=== PATIENT | female | born 1935 | race Caucasian/White ===

== ENCOUNTER 2019-12-21 05:53 | Inpatient (IN) | payer MEDICARE, BC ==
[2019-12-21] VITALS (8 sets, daily range): BP systolic 69–134; BP diastolic 45–83
[~2019-12-21] VITALS: Ht 165.1 cm; Wt 70.0 kg
[~2019-12-21 05:53] MED LIST: ONDA8TAB13 PO
[2019-12-21] MEDS ORDERED: ondansetron/PF 4mg/2ml inj IV ONE (06:00)
[2019-12-21] MEDS: morphine 4 MG/ML inj SYRINge IV PRN ×3 (06:20→10:48)
--- NOTE | 2019-12-21 06:35 | NUR ---
Assumed care of Patient, patient A&O x4. Patient states pain in tolerable at this time. Patient awaiting xray. No other needs at this time.
--- NOTE | 2019-12-21 06:48 | NUR ---
Xray at bedside.
--- NOTE | 2019-12-21 06:57 | NUR ---
Patient's son, Kwesi, updated about care and left his phone number [phone]
[2019-12-21 07:06] LABS: BASOPHILS % (AUTO) 0.5 % (0-1); EOSINOPHILS # (AUTO) 0.1 X10'3 (0-0.9); EOSINOPHILS % (AUTO) 1.2 % (0-6); HEMATOCRIT 37.4 % (35.0-45.0); HEMOGLOBIN 12.2 g/dl (12.0-16.0); LYMPHOCYTES # (AUTO) 1.6 X10'3 (1.1-4.8); LYMPHOCYTES % (AUTO) 18.5 % (21-51); MEAN CORPUSCULAR HEMOGLOBIN 30.8 PG (27.0-31.0); MEAN CORPUSCULAR HGB CONC 32.7 g/dL (33.0-36.5); MEAN CORPUSCULAR VOLUME 94.2 FL (78-98); MEAN PLATELET VOLUME 8.2 FL (7.4-10.4); MONOCYTES # (AUTO) 0.7 X10'3 (0-0.9); MONOCYTES % (AUTO) 8.4 % (2-12); NEUTROPHILS # (AUTO) 6.2 X10'3 (1.8-7.7); NEUTROPHILS % (AUTO) 71.4 % (42-75); PLATELET COUNT 211 X10'3 (140-440); RED BLOOD COUNT 3.97 X10'6 (4.20-5.60); RED CELL DISTRIBUTION WIDTH 14.8 % (11.5-14.5); WHITE BLOOD COUNT 8.6 X10'3 (4.5-11.0)
[2019-12-21 07:17] LABS: PARTIAL THROMBOPLASTIN TIME 42 SECONDS (22-32)
[2019-12-21 07:20] LABS: ALANINE AMINOTRANSFERASE 24 U/L (12-78); ALBUMIN 3.2 G/DL (3.4-5.0); ALBUMIN/GLOBULIN RATIO 0.9 (1.1-1.5); ALKALINE PHOSPHATASE 62 IU/L (46-116); ANION GAP 8 (8-16); ASPARTATE AMINO TRANSFERASE 19 U/L (10-37); BILIRUBIN,TOTAL 0.4 MG/DL (0.1-1.0); BLOOD UREA NITROGEN 13 MG/DL (7-18); BUN/CREATININE RATIO 14.8 (6.6-38.0); CALCIUM 8.5 MG/DL (8.5-10.1); CHLORIDE 105 MMOL/L (99-107); CREATININE 0.88 MG/DL (0.40-0.90); GLUCOSE 102 MG/DL (70-104); POTASSIUM 4.2 MMOL/L (3.5-5.1); SODIUM 141 MMOL/L (135-145); TOTAL CARBON DIOXIDE 27.9 MMOL/L (24-32); TOTAL PROTEIN 6.8 G/DL (6.4-8.2); eGFR 61 ML/MIN
[2019-12-21] MEDS ORDERED: FURO-150 PO (07:36)
[2019-12-21] MEDS ORDERED: POTA10CA44 PO (07:37)
[2019-12-21] MEDS ORDERED: WARF1TAB2 PO (07:39)
[2019-12-21] MEDS ORDERED: WARF5TAB2 PO (07:39)
[2019-12-21] MEDS ORDERED: mag hydrox/Alum hydrox/simeth 30ml oral suspension PO PRN (07:40)
[2019-12-21] MEDS ORDERED: phytonadione inj. 5 MG in normal saline 100ml IV soln 99.5 ML IV ONE (07:40)
[2019-12-21] MEDS ORDERED: magnesium hydroxide 30ml (MOM) UD suspension PO PRN (07:40)
[2019-12-21] MEDS ORDERED: acetaminophen 325mg tablet PO PRN (07:40)
[2019-12-21] MEDS ORDERED: ondansetron/PF 4mg/2ml inj IV PRN (07:40)
[2019-12-21] MEDS ORDERED: SIMV-42 PO (07:44)
[2019-12-21] MEDS ORDERED: METO1TAB25 PO (07:44)
[2019-12-21] MEDS ORDERED: PIL2OS RIGHTEYE (07:44)
[2019-12-21] MEDS ORDERED: PIL2OS EACHEYE (07:44)
[2019-12-21] MEDS ORDERED: GABA600T13 PO (07:44)
[2019-12-21] MEDS ORDERED: RIVA1PAT9 TOP (07:47)
[2019-12-21] MEDS ORDERED: LEVO100T9 PO (07:47)
[2019-12-21] MEDS: normal saline 1000ml 1,000 ML IV SCH ×2 (08:20→18:11)
[2019-12-21 08:48] LABS: CLARITY,URINE CLEAR (Clear); COLOR,URINE YELLOW (Yellow); GLUCOSE, URINE NEGATIVE (Neg); KETONES,URINE NEGATIVE (Neg); LEUKOCYTE ESTERASE ,URINE NEGATIVE (Neg); NITRITES, URINE NEGATIVE (Neg); OCCULT BLOOD,URINE SMALL (Neg); PROTEIN,URINE NEGATIVE (Neg); UA COLLECTION TYPE FOLEY CATH; UROBILINOGEN,URINE 0.2 E.U/dL (0.2-1.0)
[2019-12-21 08:55] LABS: BACTERIA,URINE 1+ /HPF (Neg); MUCUS STRANDS MANY /LPF (Neg); SQUAMOUS EPITHELIAL CELL,UR FEW /LPF (FEW); WBC,URINE 0-4 /HPF (0-4)
[2019-12-21] MEDS ORDERED: RIVA1.5C16 PO (09:28)
[2019-12-21] MEDS ORDERED: METO-384 PO (09:28)
--- NOTE | 2019-12-21 10:04 | NUR ---
Patient's son updated on patient's care/plan. Patient talking to son on phone.
--- NOTE | 2019-12-21 10:54 | NUR ---
Repositioned patient and supported knee/legs with pillow per patient request. Patient given additional pain medication. Call light within reach. No other needs at this time.
[2019-12-21] MEDS: HYDROmorphone inj. 0.5 MG/0.5 ML DISP.SYRIN IV PRN ×2 (14:10→19:22)
[2019-12-21 14:23] LABS: PARTIAL THROMBOPLASTIN TIME 33 SECONDS (22-32)
[2019-12-21] MEDS ORDERED: metoprolol succinate 25mg (24-HOUR) SR. Tablet PO STA (14:23)
[2019-12-21] MEDS: levoTHYROXINE 100mcg tablet PO SCH (15:09)
[2019-12-21] MEDS: furosemide 20MG tablet PO SCH (15:09)
[2019-12-21] MEDS: gabapentin 300mg capsule PO SCH (15:09)
[2019-12-21] MEDS: potassium Cl 20 mEq SR tablet PO SCH (15:09)
[2019-12-21] MEDS ORDERED: phytonadione inj. 3 MG in normal saline 100ml IV soln 99.7 ML IV ONE (17:20)
--- NOTE | 2019-12-21 18:30 | NUR ---
son called to notify that pt WILL accept cryoprecipitate.
--- NOTE | 2019-12-21 19:11 | NUR ---
called Dr. Marsh anestesiologist about INR and vit K doses. stated no bridge heparin needed, recheck INR in am would be appropriate.
[2019-12-21] MEDS: pilocarpine 2% ophthalmic drops 15ml EACHEYE SCH (20:00)
[2019-12-21] MEDS: atorvastatin 10mg tablet PO SCH (21:00)
[2019-12-21] MEDS ORDERED: ringers solution, lacted 1,000 ML IV ONE (22:10)
--- NOTE | 2019-12-21 23:00 | NUR ---
gave fluid bolus 250ml normal saline for decreased BP. pt tolerated well.
[2019-12-22] VITALS (20 sets, daily range): BP systolic 90–150; BP diastolic 51–88
[2019-12-22] MEDS: pilocarpine 2% ophthalmic drops 15ml EACHEYE SCH ×4 (02:37→20:28)
[2019-12-22] MEDS: normal saline 1000ml 1,000 ML IV SCH ×3 (02:37→23:07)
[2019-12-22] MEDS: morphine 2 MG/ML inj. syringe IV PRN ×4 (04:03→23:01)
[2019-12-22] MEDS ORDERED: famotidine 20mg tablet PO ONE (06:00)
--- NOTE | 2019-12-22 06:30 | NUR ---
Patient in room ORTHO 4021. I have received report from Santa KOHLER and had the opportunity to ask questions and assume patient care.
[2019-12-22 06:41] LABS: BASOPHILS % (AUTO) 0.2 % (0-1); EOSINOPHILS % (AUTO) 0 % (0-6); HEMATOCRIT 30.5 % (35.0-45.0); HEMOGLOBIN 9.8 g/dl (12.0-16.0); LYMPHOCYTES % (AUTO) 8.1 % (21-51); MEAN CORPUSCULAR HEMOGLOBIN 30.6 PG (27.0-31.0); MEAN CORPUSCULAR HGB CONC 32.3 g/dL (33.0-36.5); MEAN CORPUSCULAR VOLUME 94.6 FL (78-98); MEAN PLATELET VOLUME 8.4 FL (7.4-10.4); MONOCYTES # (AUTO) 1.3 X10'3 (0-0.9); MONOCYTES % (AUTO) 10.8 % (2-12); NEUTROPHILS # (AUTO) 9.7 X10'3 (1.8-7.7); NEUTROPHILS % (AUTO) 80.9 % (42-75); PLATELET COUNT 180 X10'3 (140-440); RED BLOOD COUNT 3.22 X10'6 (4.20-5.60); RED CELL DISTRIBUTION WIDTH 14.8 % (11.5-14.5)
[2019-12-22 06:50] LABS: ALBUMIN 2.7 G/DL (3.4-5.0); ANION GAP 5 (8-16); BLOOD UREA NITROGEN 21 MG/DL (7-18); BUN/CREATININE RATIO 16.9 (6.6-38.0); CALCIUM 7.8 MG/DL (8.5-10.1); CHLORIDE 108 MMOL/L (99-107); CREATININE 1.24 MG/DL (0.40-0.90); GLUCOSE 104 MG/DL (70-104); POTASSIUM 4.5 MMOL/L (3.5-5.1); SODIUM 140 MMOL/L (135-145); TOTAL CARBON DIOXIDE 26.7 MMOL/L (24-32); eGFR 41 ML/MIN
--- NOTE | 2019-12-22 07:00 | NUR ---
Patient report given to Nai in recovery. Okayed with anesthesia to give beta/shahab, EKG done this morning pre-op. Dr. Marsh came to see the patient pre-op.
[2019-12-22] MEDS: metoprolol succinate 25mg (24-HOUR) SR. Tablet PO SCH (07:04)
[2019-12-22] MEDS ORDERED: metoprolol succinate 25mg (24-HOUR) SR. Tablet PO ONE (07:05)
[2019-12-22] MEDS ORDERED: fentaNYL/PF 50MCG/1 ML 2ML syringe ONE (07:34)
[2019-12-22] MEDS ORDERED: midazolam 2 mg/2 ml injection ONE (07:36)
[2019-12-22] MEDS: gabapentin 300mg capsule PO SCH (08:00)
[2019-12-22] MEDS: potassium Cl 20 mEq SR tablet PO SCH (08:00)
[2019-12-22] MEDS: furosemide 20MG tablet PO SCH (08:00)
[2019-12-22] MEDS: levoTHYROXINE 100mcg tablet PO SCH (08:00)
[2019-12-22] MEDS ORDERED: phenylephrine 10mg/ml inj. ONE (08:17)
[2019-12-22] MEDS ORDERED: ceFAZolin 1000mg inj ONE ×2 (08:17)
[2019-12-22] MEDS ORDERED: 0.9 % SODIUM CHLORIDE 10 ML VIAL ONE (08:17)
[2019-12-22] MEDS ORDERED: ePHEDrine 50MG/ML INJ. ONE (08:17)
[2019-12-22] MEDS ORDERED: ringers solution, lacted 1,000 ML IV SCH (09:39)
--- NOTE | 2019-12-22 09:39 | NUR ---
PATIENT ARRIVED TO RECOVERY VIA BED WITH PATIENT A&OX4, DENIES PAIN, V/S WNL, NEUROVASCULAR CHECKS INTACT, 20G PIV RIGHT HAND, DRESSING TO RIGHT KNEE CDI W/ COLD POWDER PACK AND IMMOBILIZER BRACE W/ SCD ON. F/C DRAINING CLEAR YELLOW URINE. SENSATION down to ankles.
[2019-12-22] MEDS ORDERED: morphine 2 MG/ML inj. syringe IV PRN (09:40)
[2019-12-22] MEDS ORDERED: meperidine/PF 25mg/ml syringe IV PRN ×2 (09:40)
[2019-12-22] MEDS ORDERED: ondansetron/PF 4mg/2ml inj IV PRN (09:40)
[2019-12-22] MEDS ORDERED: acetaminophen 1,000mg/100ml IV 100 ML IV PRN (09:40)
[2019-12-22] MEDS ORDERED: proCHLORperazine 10 MG/2 ml inj IV PRN (09:40)
--- NOTE | 2019-12-22 10:20 | NUR ---
Called Tele monitor room to ask about patient's baseline HR with AFIB prior to surgery. He confirmed HR was anywhere between 110s and 140s. Pt in Afib and rate of 120s-130s now so at baseline. This was also confirmed and reviewed with Shasha KOHLER during report to ortho floor.
--- NOTE | 2019-12-22 10:49 | NUR ---
PATIENT A&OX4, DENIES PAIN, V/S WNL, NEUROVASCULAR CHECKS INTACT, DRESSING TO RIGHT HIP CDI, SCD ON. F/C DRAINING CLEAR YELLOW URINE. PATIENT TAKEN TO WITH ALL BELONGINGS AND HOOKED UP TO MONITORS IN ROOM AND REPORT GIVEN TO WIND TURBINE TECHNICIAN WHO HAS TAKEN OVER PATIENT CARE. BED LOW, CALL LIGHT PRESENT AND VSS. Tele 21 placed back on patient and tele monitor called to inform.
--- NOTE | 2019-12-22 18:11 | NUR ---
Problems reprioritized. Patient report given, questions answered & plan of care reviewed with Debbie KOHLER.
[2019-12-22] MEDS: warfarin 5mg tablet PO SCH (20:27)
[2019-12-22] MEDS: atorvastatin 10mg tablet PO SCH (20:27)
[2019-12-23] VITALS (7 sets, daily range): BP systolic 116–154; BP diastolic 62–78
[2019-12-23] MEDS ORDERED: ziprasidone IM 20mg inj **IM only IM PRN (02:15)
[2019-12-23] MEDS: pilocarpine 2% ophthalmic drops 15ml EACHEYE SCH ×4 (02:37→19:11)
[2019-12-23] MEDS: morphine 2 MG/ML inj. syringe IV PRN (03:24)
--- NOTE | 2019-12-23 04:20 | NUR ---
Spoke with MD Mcdermott received orders to give Metoprolol now r/t HR 120's -140's.
[2019-12-23] MEDS: metoprolol succinate 25mg (24-HOUR) SR. Tablet PO SCH ×2 (04:22→19:11)
--- NOTE | 2019-12-23 06:00 | NUR ---
Patient in room ORTHO 4021. I have received report from Debbie Avelar and had the opportunity to ask questions and assume patient care.
--- NOTE | 2019-12-23 06:09 | NUR ---
Report given to Rossy KOHLER.
[2019-12-23 06:46] LABS: BASOPHILS % (AUTO) 0.2 % (0-1); EOSINOPHILS % (AUTO) 0 % (0-6); HEMATOCRIT 25.7 % (35.0-45.0); HEMOGLOBIN 8.4 g/dl (12.0-16.0); LYMPHOCYTES # (AUTO) 1.1 X10'3 (1.1-4.8); LYMPHOCYTES % (AUTO) 8.5 % (21-51); MEAN CORPUSCULAR HGB CONC 32.9 g/dL (33.0-36.5); MEAN CORPUSCULAR VOLUME 94.3 FL (78-98); MEAN PLATELET VOLUME 8.5 FL (7.4-10.4); MONOCYTES # (AUTO) 1.9 X10'3 (0-0.9); MONOCYTES % (AUTO) 14.1 % (2-12); NEUTROPHILS # (AUTO) 10.2 X10'3 (1.8-7.7); NEUTROPHILS % (AUTO) 77.2 % (42-75); PLATELET COUNT 145 X10'3 (140-440); RED BLOOD COUNT 2.72 X10'6 (4.20-5.60); RED CELL DISTRIBUTION WIDTH 14.5 % (11.5-14.5); WHITE BLOOD COUNT 13.2 X10'3 (4.5-11.0)
[2019-12-23 07:02] LABS: ALBUMIN 2.4 G/DL (3.4-5.0); ANION GAP 4 (8-16); BLOOD UREA NITROGEN 21 MG/DL (7-18); BUN/CREATININE RATIO 27.6 (6.6-38.0); CHLORIDE 105 MMOL/L (99-107); CREATININE 0.76 MG/DL (0.40-0.90); GLUCOSE 126 MG/DL (70-104); POTASSIUM 3.9 MMOL/L (3.5-5.1); SODIUM 137 MMOL/L (135-145); TOTAL CARBON DIOXIDE 28.2 MMOL/L (24-32); eGFR 73 ML/MIN
[2019-12-23] MEDS: normal saline 1000ml 1,000 ML IV SCH ×2 (09:35→20:15)
[2019-12-23] MEDS: potassium Cl 20 mEq SR tablet PO SCH (09:37)
[2019-12-23] MEDS: levoTHYROXINE 100mcg tablet PO SCH (09:45)
[2019-12-23] MEDS: furosemide 20MG tablet PO SCH (09:45)
[2019-12-23] MEDS: gabapentin 300mg capsule PO SCH (09:45)
--- NOTE | 2019-12-23 18:05 | NUR ---
PAGER ID: [phone] MESSAGE: Rossy Garcia on ortho, Ms. Solomon in [address], has been having high HR of 140s -170s in the last 20 minutes, please advise, thank you
--- NOTE | 2019-12-23 18:20 | NUR ---
Problems reprioritized. Patient report given, questions answered & plan of care reviewed with
[2019-12-23] MEDS: diltiazem CD 120mg capsule (once-daily) PO SCH (19:10)
--- NOTE | 2019-12-23 19:18 | NUR ---
ASSUMED CARE OF PATIENT WITH VERBAL REPORT FROM HEIDI KOHLER. DR. MCKEON ORDERED CARDIZEM AND METOPROLOL AT CHANGE OF SHIFT TO BE GIVEN FOR SUSTAINED HR OF 130-145. MEDS GIVEN. B/P WAS 133/78, AND HR WAS 144. WILL MONITOR HR FREQUENTLY.
[2019-12-23] MEDS: atorvastatin 10mg tablet PO SCH (21:11)
[2019-12-23] MEDS: warfarin 5mg tablet PO SCH (21:12)
[2019-12-24] MEDS: pilocarpine 2% ophthalmic drops 15ml EACHEYE SCH ×4 (02:25→21:23)
[2019-12-24] MEDS: normal saline 1000ml 1,000 ML IV SCH ×3 (05:59→22:34)
[2019-12-24 06:00] VITALS: BP 122/65
[2019-12-24] MEDS: morphine 2 MG/ML inj. syringe IV PRN ×2 (06:32→22:50)
--- NOTE | 2019-12-24 06:37 | NUR ---
Problems reprioritized. Patient report given, questions answered & plan of care reviewed with Betina KOHLER.
--- NOTE | 2019-12-24 06:39 | NUR ---
Patient in room ORTHO 4021. I have received report from BLAISE KOHLER and had the opportunity to ask questions and assume patient care.
[2019-12-24 07:07] LABS: BASOPHILS % (AUTO) 0.1 % (0-1); EOSINOPHILS % (AUTO) 0.1 % (0-6); HEMATOCRIT 24.9 % (35.0-45.0); HEMOGLOBIN 8.2 g/dl (12.0-16.0); LYMPHOCYTES # (AUTO) 0.9 X10'3 (1.1-4.8); LYMPHOCYTES % (AUTO) 6.7 % (21-51); MEAN CORPUSCULAR HEMOGLOBIN 31.3 PG (27.0-31.0); MEAN CORPUSCULAR HGB CONC 33.1 g/dL (33.0-36.5); MEAN CORPUSCULAR VOLUME 94.4 FL (78-98); MEAN PLATELET VOLUME 8.5 FL (7.4-10.4); MONOCYTES # (AUTO) 1.5 X10'3 (0-0.9); MONOCYTES % (AUTO) 11.3 % (2-12); NEUTROPHILS # (AUTO) 11.1 X10'3 (1.8-7.7); NEUTROPHILS % (AUTO) 81.8 % (42-75); PLATELET COUNT 147 X10'3 (140-440); RED BLOOD COUNT 2.63 X10'6 (4.20-5.60); RED CELL DISTRIBUTION WIDTH 14.5 % (11.5-14.5); WHITE BLOOD COUNT 13.6 X10'3 (4.5-11.0)
[2019-12-24 07:16] LABS: ALBUMIN 2.2 G/DL (3.4-5.0); ANION GAP 4 (8-16); BLOOD UREA NITROGEN 18 MG/DL (7-18); BUN/CREATININE RATIO 26.1 (6.6-38.0); CALCIUM 7.8 MG/DL (8.5-10.1); CHLORIDE 104 MMOL/L (99-107); CREATININE 0.69 MG/DL (0.40-0.90); GLUCOSE 104 MG/DL (70-104); POTASSIUM 3.8 MMOL/L (3.5-5.1); SODIUM 136 MMOL/L (135-145); TOTAL CARBON DIOXIDE 28.2 MMOL/L (24-32); eGFR 81 ML/MIN
[2019-12-24] MEDS: diltiazem CD 120mg capsule (once-daily) PO SCH (08:15)
[2019-12-24] MEDS: furosemide 20MG tablet PO SCH (08:16)
[2019-12-24] MEDS: potassium Cl 20 mEq SR tablet PO SCH (08:17)
[2019-12-24] MEDS: gabapentin 300mg capsule PO SCH (08:18)
[2019-12-24] MEDS: levoTHYROXINE 100mcg tablet PO SCH (08:18)
[2019-12-24] MEDS: metoprolol succinate 25mg (24-HOUR) SR. Tablet PO SCH (08:19)
[2019-12-24 11:25] VITALS: BP 112/72
[2019-12-24 18:00] VITALS: BP 128/80
--- NOTE | 2019-12-24 18:26 | NUR ---
Problems reprioritized. Patient report given, questions answered & plan of care reviewed with ASHER KOHLER.
--- NOTE | 2019-12-24 21:17 | NUR ---
Spoke to patient's son, Theo. Wanting his mom to go to [facility], but has requested to be contacted by DCP for any dischg plans or decisions. Will pass this on to early shift RN caring for her and also will communicate this to the morning charge preparation technician
[2019-12-24] MEDS: warfarin 5mg tablet PO SCH (21:22)
[2019-12-24] MEDS: atorvastatin 10mg tablet PO SCH (21:22)
[2019-12-24 22:00] VITALS: BP 126/82
[2019-12-25] MEDS: pilocarpine 2% ophthalmic drops 15ml EACHEYE SCH ×2 (02:00→07:20)
[2019-12-25 05:48] LABS: BASOPHILS % (AUTO) 0.1 % (0-1); EOSINOPHILS # (AUTO) 0.1 X10'3 (0-0.9); EOSINOPHILS % (AUTO) 0.7 % (0-6); HEMATOCRIT 22.5 % (35.0-45.0); HEMOGLOBIN 7.4 g/dl (12.0-16.0); LYMPHOCYTES # (AUTO) 1.2 X10'3 (1.1-4.8); LYMPHOCYTES % (AUTO) 10.2 % (21-51); MEAN CORPUSCULAR HEMOGLOBIN 30.6 PG (27.0-31.0); MEAN CORPUSCULAR HGB CONC 32.9 g/dL (33.0-36.5); MEAN CORPUSCULAR VOLUME 93.1 FL (78-98); MEAN PLATELET VOLUME 7.9 FL (7.4-10.4); MONOCYTES # (AUTO) 1.4 X10'3 (0-0.9); MONOCYTES % (AUTO) 12.2 % (2-12); NEUTROPHILS # (AUTO) 8.7 X10'3 (1.8-7.7); NEUTROPHILS % (AUTO) 76.8 % (42-75); PLATELET COUNT 165 X10'3 (140-440); RED BLOOD COUNT 2.42 X10'6 (4.20-5.60); RED CELL DISTRIBUTION WIDTH 14.5 % (11.5-14.5); WHITE BLOOD COUNT 11.3 X10'3 (4.5-11.0)
[2019-12-25 05:53] LABS: ANION GAP 4 (8-16); BLOOD UREA NITROGEN 20 MG/DL (7-18); BUN/CREATININE RATIO 30.3 (6.6-38.0); CALCIUM 7.6 MG/DL (8.5-10.1); CHLORIDE 105 MMOL/L (99-107); CREATININE 0.66 MG/DL (0.40-0.90); GLUCOSE 97 MG/DL (70-104); POTASSIUM 3.5 MMOL/L (3.5-5.1); SODIUM 137 MMOL/L (135-145); TOTAL CARBON DIOXIDE 27.7 MMOL/L (24-32); eGFR 86 ML/MIN
[2019-12-25 06:00] VITALS: BP 107/74
--- NOTE | 2019-12-25 06:16 | NUR ---
received report from padilla so
[2019-12-25] MEDS: diltiazem CD 120mg capsule (once-daily) PO SCH (07:21)
[2019-12-25] MEDS: potassium Cl 20 mEq SR tablet PO SCH (07:21)
[2019-12-25] MEDS: gabapentin 300mg capsule PO SCH (07:21)
[2019-12-25] MEDS: metoprolol succinate 25mg (24-HOUR) SR. Tablet PO SCH (07:22)
[2019-12-25] MEDS: levoTHYROXINE 100mcg tablet PO SCH (07:22)
[2019-12-25] MEDS: morphine 2 MG/ML inj. syringe IV PRN (09:37)
[2019-12-25 10:00] VITALS: BP 100/56
--- NOTE | 2019-12-25 13:21 | NUR ---
gave report to deion causey at [facility]
--- NOTE | 2019-12-25 14:05 | NUR ---
pt d/c with all belongings on rob accompanied by [facility] personnel to [facility]
== END 2019-12-25 14:05 | DRG 481 ==
LOC: ER 05:53 → ED HOLD 07:38 → ORTHO 4S 11:48
PROVIDERS: ADMIT Family Medicine; ATTEND Family Medicine
PROC: 0QS606Z Reposition Right Upper Femur with Intramedullary Internal Fixation Device, Open Approach (ICD-10-PCS; principal; 2019-12-22 07:26)
DX: M80.851A Other osteoporosis with current pathological fracture, right femur, initial encounter for fracture (principal); I48.20 Chronic atrial fibrillation, unspecified; D68.59 Other primary thrombophilia; T45.515A Adverse effect of anticoagulants, initial encounter; E03.9 Hypothyroidism, unspecified; E78.00 Pure hypercholesterolemia, unspecified; W01.0XXA Fall on same level from slipping, tripping and stumbling without subsequent striking against object, initial encounter; F32.9 Major depressive disorder, single episode, unspecified; F41.9 Anxiety disorder, unspecified; D72.829 Elevated white blood cell count, unspecified; K21.9 Gastro-esophageal reflux disease without esophagitis; E78.5 Hyperlipidemia, unspecified; I10 Essential (primary) hypertension; Z79.01 Long term (current) use of anticoagulants; Z86.73 Personal history of transient ischemic attack (TIA), and cerebral infarction without residual deficits; Y93.89 Activity, other specified; Y92.098 Other place in other non-institutional residence as the place of occurrence of the external cause; Y99.8 Other external cause status; Z88.5 Allergy status to narcotic agent; Z79.899 Other long term (current) drug therapy
CPT/HCPCS: 36415; 71045; 73502; 76000; 80048; 80053; 81001; 82948; 83605; 84145; 84443; 85025; 85610; 85730; 86885; 86900; 86901; 87040; 87081; 93005; 96374; 97110; 97112; 97116; 97162; 97530; 99285; A4215; A4618; A7000; C1713; G0378; J0690; J1170; J2175; J2250; J2270; J2370; J2405; J3010; J3430; J3486; J7030; J7120

== ENCOUNTER 2022-04-25 17:09 | Inpatient (IN) | payer MEDICARE, BC ==
[~2022-04-25] VITALS: Ht 160 cm; Wt 65.9 kg
[~2022-04-25 17:09] MED LIST changes: +GABA600T13 PO; +LEVO100T9 PO; +METO-384 PO; -ONDA8TAB13 PO; +PIL2OS EACHEYE; +POTA10CA45 PO; +RIVA1.5C30 PO; +SIMV-42 PO; +WARF5TAB2 PO
--- NOTE | 2022-04-25 21:33 | NUR ---
spoke with son and gave him an update. per son pt is a&ox4 at home.
[2022-04-25 22:06] LABS: BASOPHILS % (AUTO) 0.4 % (0-1); EOSINOPHILS % (AUTO) 0.2 % (0-6); HEMOGLOBIN 12.7 g/dl (12.0-16.0); LYMPHOCYTES # (AUTO) 0.9 X10'3 (1.1-4.8); LYMPHOCYTES % (AUTO) 9.1 % (21-51); MEAN CORPUSCULAR HEMOGLOBIN 31.6 PG (27.0-31.0); MEAN CORPUSCULAR HGB CONC 33.5 g/dL (33.0-36.5); MEAN CORPUSCULAR VOLUME 94.4 FL (78-98); MEAN PLATELET VOLUME 8.4 FL (7.4-10.4); MONOCYTES # (AUTO) 1.4 X10'3 (0-0.9); MONOCYTES % (AUTO) 13.7 % (2-12); NEUTROPHILS # (AUTO) 7.5 X10'3 (1.8-7.7); NEUTROPHILS % (AUTO) 76.6 % (42-75); PLATELET COUNT 182 X10'3 (140-440); RED BLOOD COUNT 4.02 X10'6 (4.20-5.60); RED CELL DISTRIBUTION WIDTH 14.6 % (11.5-14.5); WHITE BLOOD COUNT 9.8 X10'3 (4.5-11.0)
[2022-04-25 22:27] LABS: ALANINE AMINOTRANSFERASE 14 U/L (12-78); ALBUMIN 3.4 G/DL (3.4-5.0); ALBUMIN/GLOBULIN RATIO 0.9 (1.1-1.5); ALKALINE PHOSPHATASE 71 IU/L (46-116); ANION GAP 10 (8-16); ASPARTATE AMINO TRANSFERASE 18 U/L (10-37); BILIRUBIN,TOTAL 0.4 MG/DL (0.1-1.0); BLOOD UREA NITROGEN 21 MG/DL (7-18); CALCIUM 8.5 MG/DL (8.5-10.1); CHLORIDE 102 MMOL/L (99-107); GLUCOSE 110 MG/DL (70-104); SODIUM 137 MMOL/L (135-145); eGFR 53 ML/MIN
[2022-04-25] MEDS ORDERED: acetaminophen 325mg tablet PO ONE (22:30)
--- NOTE | 2022-04-25 22:38 | NUR ---
PT IS DISORIENTENT AND REPEATEDLY ASKS TO GO HOME. PT CONTINUES TO REQUEST THAT HER SON BE CALLED, PT WAS INFORMED THAT HER SON WAS GIVEN AN UPDATE WHEN HE CALLED.
--- NOTE | 2022-04-26 00:09 | NUR ---
Reviewed CRISTOFER Gallegos's assessment. Pt was A/O x4 when Rosy assessed her earlier, but when I assessed her, pt told me the wrong year, and couldn't tell me the month. She knows this is an ER, but she couldn't tell me when she is here. Pt could be in and out of confusion.
--- NOTE | 2022-04-26 00:11 | NUR ---
PT CONTINUES TO BE DISORIENTED AND NOT STAYING IN ROOM. PT IS PERSISTANTLY ASKING TO GO HOME.
[2022-04-26] MEDS ORDERED: diltiazem 30mg tablet PO ONE ×2 (01:15→10:30)
[2022-04-26] MEDS ORDERED: diltiazem 5mg/ml 5ml inj. IV ONE (01:20)
[2022-04-26 01:42] LABS: CLARITY,URINE CLEAR (Clear); COLOR,URINE YELLOW (Yellow); GLUCOSE, URINE NEGATIVE (Neg); KETONES,URINE NEGATIVE (Neg); LEUKOCYTE ESTERASE ,URINE NEGATIVE (Neg); NITRITES, URINE NEGATIVE (Neg); OCCULT BLOOD,URINE SMALL (Neg); PH,URINE 7.5 (4.8-8.0); PROTEIN,URINE TRACE mg/dl (Neg); UROBILINOGEN,URINE 0.2 E.U/dL (0.2-1.0)
[2022-04-26 01:48] LABS: UA COLLECTION TYPE OTHER
[2022-04-26 01:49] LABS: BACTERIA,URINE 1+ /HPF (Neg); SQUAMOUS EPITHELIAL CELL,UR FEW /LPF (FEW)
[2022-04-26] MEDS ORDERED: magnesium 4gm in 100ml NS 100 ML IV PRN (02:30)
[2022-04-26] MEDS ORDERED: potassium Cl 40MEQ/1/2NS 520ml 520 ML IV PRN (02:30)
[2022-04-26] MEDS ORDERED: magnesium Cl slow-release 64mg tablet PO PRN (02:30)
[2022-04-26] MEDS ORDERED: diltiazem-NS 100mg/100ml 100 ML IV SCH (02:30)
[2022-04-26] MEDS ORDERED: normal saline 1000ml 1,000 ML IV SCH (02:30)
[2022-04-26] MEDS ORDERED: potassium Cl 20 mEq SR tablet PO PRN ×2 (02:30)
[2022-04-26] MEDS ORDERED: ondansetron/PF 4mg/2ml inj IV PRN (02:30)
[2022-04-26] MEDS ORDERED: acetaminophen 325mg tablet PO PRN ×2 (02:30)
[2022-04-26] MEDS ORDERED: CefTRIAXone 2gm/D5W 50ml BAG 50 ML IV ONE (02:35)
--- NOTE | 2022-04-26 04:32 | NUR ---
PT PULLED IV ACCESS OUT AND REPEATEDLY ATTEMPTING TO GET OUT OF BED. PT PLACED BACK IN BED AND REORIENTED.
[2022-04-26] MEDS ORDERED: heparin, porcine 5000 units/ml vial SQ SCH (08:00)
--- NOTE | 2022-04-26 10:26 | NUR ---
Per MD Montiel; pt to get PO card 60mg and stop dilt drip 1 hrs after Po med is given
--- NOTE | 2022-04-26 14:22 | NUR ---
Son (Theo) given an update on pt and made aware that hospitalist is planning on d/c patient. Theo will be the ride home when pt is offically d/c
[2022-04-26 15:46] VITALS: BP 113/68
--- NOTE | 2022-04-26 16:01 | NUR ---
called son Theo for moss picker. He will wait in parking lot by [id number]
--- NOTE | 2022-04-26 16:08 | NUR ---
promotional table spacer promotional table spacer Page Sent promotional table spacer PAGER ID: [phone] MESSAGE: Dr. Celaya, Please finalize medication for ED 14 waiting to be discharged last name Cedrick Burt (103 character message out of a maximum of 240) CLOSE [X] SEND ANOTHER PAGE Thank you for visiting [facility] promotional table spacer promotional table spacer
[2022-04-26] MEDS ORDERED: temazepam 15mg capsule PO PRN (21:00)
--- NOTE | 2022-05-12 13:15 | NUR ---
Case Management DC follow up: Left VM with name, telephone number, and reason for call.
== END 2022-04-26 17:01 | disposition home health service (06) | DRG 177 ==
LOC: ER 17:10 → ED HOLD 04-26 02:32 → EDBEDREQ 04-26 02:36
PROVIDERS: ADMIT Internal Medicine; ATTEND Internal Medicine
DX: U07.1 COVID-19 (principal); G93.41 Metabolic encephalopathy; E03.9 Hypothyroidism, unspecified; E78.00 Pure hypercholesterolemia, unspecified; F32.A Depression, unspecified; F41.9 Anxiety disorder, unspecified; K21.9 Gastro-esophageal reflux disease without esophagitis; F03.90 Unspecified dementia, unspecified severity, without behavioral disturbance, psychotic disturbance, mood disturbance, and anxiety; I48.0 Paroxysmal atrial fibrillation; Z79.899 Other long term (current) drug therapy; Z86.73 Personal history of transient ischemic attack (TIA), and cerebral infarction without residual deficits; Z88.5 Allergy status to narcotic agent; Z79.890 Hormone replacement therapy
CPT/HCPCS: 36415; 71045; 80053; 81001; 83605; 84145; 85025; 85610; 86140; 87040; 87088; 87635; 93005; 96374; 99285; C9803; G0378; J0696; J1644; J3490; J7030